=== PATIENT | female | born 1970 | race African-American/Black ===

== ENCOUNTER 2017-09-10 16:39 | Observation (INO) | payer SELFPAY ==
[~2017-09-10] VITALS: Ht 167.6 cm; Wt 102.0 kg
--- NOTE | 2017-09-10 16:54 | NUR ---
PT AMBULATED TO ER ROOM 13 WITH 2 DAUGHTERS. PT DISCOURAGED FROM PUTTING HER THICK JACKET BACK ON DUE TO FEVER.
--- NOTE | 2017-09-10 17:45 | NUR ---
TYLENOL PROVIDED FOR FEVER. PT WITH HIGH BP, BUT DOES NOT TAKE ANYTHING FOR IT, NOT DIAGNOSED.
[2017-09-10 18:08] LABS: HEMATOCRIT 43.7 % (37.0-47.0); HEMOGLOBIN 14.3 g/dl (12.0-16.0); IMMATURE GRANULOCYTES 0.3 % (0.0-1.0); MEAN CELL VOLUME 86.5 fL CALC (80.0-100.0); MEAN CORPUSCULAR HGB 28.3 pG CALC (26.0-32.0); MEAN CORPUSCULAR HGB CONC 32.7 g/L CALC (32.0-36.0); NEUT# 4.15 thou/uL (2.00-7.15); RED BLOOD COUNT 5.05 mill/uL (4.20-5.60); RED CELL DISTRI WIDTH 13.2 % (11.5-15.5)
[2017-09-10 18:29] LABS: ALBUMIN 4.7 g/dL (3.2-5.0); ALKALINE PHOSPHATASE 112 u/l (38-126); ANION GAP 16 (6-22 (CALC)); BILIRUBIN, TOTAL 0.5 mg/dL (0.0-1.4); BUN 13 mg/dL (7-17); BUN/CREATININE RATIO 13 (12-20 (CALC)); CALCIUM 9.6 mg/dL (8.4-10.2); CARBON DIOXIDE 27 mmol/l (22-30); CHLORIDE 101 mmol/l (95-108); GFR 59 ML/MIN (>=60 (CALC)); GFR FOR AFR.AMER. > 60 ML/MIN (>=60 (CALC)); GLUCOSE 104 mg/dL (65-105); POTASSIUM 4.6 mmol/l (3.5-5.1); SGOT/AST 17 u/l (14-36); SGPT/ALT 30 u/l (9-52); SODIUM 140 mmol/l (137-146); TOTAL PROTEIN 7.8 g/dL (6.3-8.2)
--- NOTE | 2017-09-10 19:00 | NUR ---
PT RETURNED FROM XRAY A/O X3 SAYS SHE FEELS A LITTLE BETTER PT IS RELIEVED TO BE TOLD HER BP IS COMING DOWN.W/P/D SKIN
[2017-09-10 19:04] LABS: INFLUENZA A NONE DETECTED (NONE DETECT); INFLUENZA B NONE DETECTED (NONE DETECT)
--- NOTE | 2017-09-10 20:17 | NUR ---
PHONE REPORT TO EVERT NIEVES ON MS 2
--- NOTE | 2017-09-10 20:21 | NUR ---
TO MS VIA STRETCHER AND MONITOR IN STABLE CONDITION
--- NOTE | 2017-09-10 20:23 | NUR ---
PT TRANSFERRED TO FLOOR IN STABLE CONDITION VIA STRETCHER ACCOMPANIED BY AG,RN AND FAMILY;PT AMBULATED WITH A STEADY GAIT TO BEDSIDE;VS AND WT OBTAINED BY GABBI PADRON;PT ORIENTED TO ROOM AND CALL LIGHT SYSTEM AND VERBALIZES UNDERSTANDING;PT A&O X3;ASSESSMENT COMPLETED;#20G TO RIGHT HAND FLUSHED,PATENT AND NS @ 100.0,PT TOLERATED WELL;TELE MONITOR IN PLACE;SKIN INTACT;RESPIRATIONS EVEN AND UNLABORED ON RA;SAFETY PRECAUTIONS REINFORCED;FRESH WATER PROVIDED;PT DENIES ANY PAIN OR DISCOMFORTS AND IS EDUCATED TO PAIN SCALE AND REPORTING;CALL LIGHT IN REACH;WILL CONTINUE TO MONITOR
[2017-09-10 20:25] VITALS: BP 164/89
[2017-09-10 23:57] VITALS: BP 142/91
[2017-09-11] VITALS (9 sets, daily range): BP systolic 143–184; BP diastolic 81–98
--- NOTE | 2017-09-11 00:25 | NUR ---
LAB AT BEDSIDE;IV FLUIDS INFUSING WELL TO RIGHT HAND;RESPIRATIONS EVEN AND UNLABORED ON RA;PT DENIES ANY OTHER NEEDS AT THIS TIME;CALL LIGHT IN REACH;WILL CONTINUE TO MONITOR
--- NOTE | 2017-09-11 00:40 | NUR ---
PT TEMP OF 101.6 AT THIS TIME;EMESIS BAGS PROVIDED FOR NAUSEA;AC LOWERED AND COOL CLOTH PROVIDED;PT REFUSES BLANKETS TO BE REMOVED STATING "IM FREEZING";PT EDUCATED ON THE NEED TO REMOVE HER BLANKETS TO LOWER HER TEMP BUT STILL REFUSES;PT MEDICATED WITH PRN TYLENOL 650MG;WILL CONTINUE TO MONITOR FOR EFFECT
[2017-09-11 05:54] LABS: HEMATOCRIT 41.9 % (37.0-47.0); HEMOGLOBIN 13.6 g/dl (12.0-16.0); MEAN CELL VOLUME 86.6 fL CALC (80.0-100.0); MEAN CORPUSCULAR HGB 28.1 pG CALC (26.0-32.0); MEAN CORPUSCULAR HGB CONC 32.5 g/L CALC (32.0-36.0); RED BLOOD COUNT 4.84 mill/uL (4.20-5.60); RED CELL DISTRI WIDTH 13.3 % (11.5-15.5)
[2017-09-11 06:00] LABS: URINE BILIRUBIN - DIPSTICK NEGATIVE (NEGATIVE); URINE BLOOD DIPSTICK TRACE-INTACT (NEGATIVE); URINE CLARITY CLEAR; URINE COLOR YELLOW; URINE GLUCOSE - DIPSTICK NEGATIVE (NEGATIVE); URINE KETONE NEGATIVE (NEGATIVE); URINE LEUK ESTERASE NEGATIVE (Negative); URINE NITRITE - DIPSTICK NEGATIVE (Negative); URINE PROTEIN - DIPSTICK NEGATIVE (NEG-TRACE); URINE UROBILINOGEN - DIPSTICK 0.2 E.U./dL (0.2)
--- NOTE | 2017-09-11 06:02 | NUR ---
PT COMPLAINS OF HEADACHE PAIN RATING 9/10 ON THE PAIN SCALE;NITRO PATCH REMOVED FROM LEFT UPPER CHEST AND PRN TYLENOL 650MG PROVIDED;IV FLUIDS INFUSING WELL TO RIGH HAND;TEMP CURRENTLY AT 99.1;PT DENIES ANY OTHER NEEDS AT THIS TIME;WILL CONTINUE TO MONITOR
[2017-09-11 06:15] LABS: CHOLESTEROL HDL RATIO 3.9 (<4.4 (CALC))
--- NOTE | 2017-09-11 07:00 | NUR ---
RECEIVED BEDSIDE REPORT FROM LEAH GAY. RESTING IN BED WITH EYES CLOSED, AWAKENS EASILY. RESPS EVEN AND UNLABORED ON ROOM AIR, TELE MONITOR IN PLACE. #22 LAC INFUSING WITHOUT DIFFICULTY, SITE APPEARS HEALTHY. VOICES NO NEEDS AT THIS TIME. PLAN OF CARE DISCUSSED. SAFETY PRECAUTIONS REINFORCED. BED IN LOWEST POSITION WITH WHEELS LOCKED. CALL LIGHT WITHIN REACH. ENCOURAGED PT TO CALL FOR ANY NEEDS.
--- NOTE | 2017-09-11 11:25 | NUR ---
MEDICATED WITH HYDRALAZINE 10 MG IVP FOR BP 184/97, TYLENOL PO FOR TYMPANIC TEMP 100.2. PO FLUIDS OFFERED. CALL LIGHT WITHIN REACH. WILL CONTINUE TO MONITOR.
--- NOTE | 2017-09-11 11:55 | NUR ---
DR FAN IN WITH PT, NEW ORDERS RECEIVED.
--- NOTE | 2017-09-11 14:45 | NUR ---
SPOKE TO PT. She mentioned experience sweating with current medications regimen. She complained about numbness in legs and dizziness. She does not experience serious side effects with her medications. She has no questions to doctors or pharmacists at this time.
--- NOTE | 2017-09-11 16:50 | NUR ---
MEDICATED WITH HYDRALAZINE 10MG IVP FOR BP 173/92 AND TYLENOL PO FOR TYMPANIC TEMP 100.2. CALL LIGHT WITHIN REACH.
--- NOTE | 2017-09-11 20:30 | NUR ---
PT APPEARS TO BE SLEEPING IN SUPINE POSITION;WOKE PT TO COMPLETE ASSESSMENT;#22G TO LAC FLUSHED AND PATENT;TELE MONITOR IN PLACE;PT VOICES NO CONERNS OF PAIN AT THIS TIME;PT EDUCATED TO KEEP AC LOWERED AND BLANKETS OFF TO REMAIN AFEBRILE,PT DISINTRESTED IN EDUCATION AT THIS TIME;RESPIRATIONS EVEN AND UNLABORED ON RA;SKIN INTACT;SAFETY PRECAUTIONS REINFORCED;PT EDUCATED TO CALL FOR ASSISTANCE IF NEEDED;CALL LIGHT IN REACH;WILL CONTINUE TO MONITOR
--- NOTE | 2017-09-12 00:25 | NUR ---
PT RESTING IN SUPINE POSITION;PT CURRENT BP 181/98;PT MEDICATED WITH PRN HYDRALAZINE 10MG BY EVERT CRAVEN;PT ALSO HAS A TEMP OF 101.8 AND IS MEDICATED WITH 650MG OF TYLENOL,BLANKETS REMOVED,COOL CLOTH PROVIDED;PT STATES "I ACTUALLY FEEL A LOT BETTER";WILL CONTINUE TO MONITOR FOR EFFECT
[2017-09-12 01:11] VITALS: BP 165/91
[2017-09-12 04:08] VITALS: BP 152/58; BP 157/101
--- NOTE | 2017-09-12 04:10 | NUR ---
PT APPEARS TO BE SLEEPING IN SUPINE POSITION BUT WAKES EASILY;VS OBTAINED;TEMP OF 97.8 AND BP OF 152/58;RESPIRATIONS EVEN AND UNLABORED ON RA;PT DENIES ANY NEEDS AT THIS TIME;CALL LIGHT IN REACH;WILL CONTINUE TO MONITOR
[2017-09-12 05:06] LABS: IMMATURE GRANULOCYTES 0.5 % (0.0-1.0); MEAN CELL VOLUME 85.8 fL CALC (80.0-100.0); MEAN CORPUSCULAR HGB 27.4 pG CALC (26.0-32.0); MEAN CORPUSCULAR HGB CONC 31.9 g/L CALC (32.0-36.0); NEUT# 4.86 thou/uL (2.00-7.15); RED BLOOD COUNT 5.48 mill/uL (4.20-5.60); RED CELL DISTRI WIDTH 13.2 % (11.5-15.5)
[2017-09-12 05:13] LABS: ANION GAP 18 (6-22 (CALC)); BUN 10 mg/dL (7-17); BUN/CREATININE RATIO 11 (12-20 (CALC)); CALCIUM 9.5 mg/dL (8.4-10.2); CARBON DIOXIDE 24 mmol/l (22-30); CHLORIDE 103 mmol/l (95-108); CREATININE 0.9 mg/dL (0.5-1.0); GFR > 60 ML/MIN (>=60 (CALC)); GFR FOR AFR.AMER. > 60 ML/MIN (>=60 (CALC)); GLUCOSE 143 mg/dL (65-105); MAGNESIUM 1.9 mg/dL (1.6-2.3); POTASSIUM 4.3 mmol/l (3.5-5.1); SODIUM 141 mmol/l (137-146)
--- NOTE | 2017-09-12 07:00 | NUR ---
RECEIVED BEDSIDE REPORT FROM LEAH GAY. RESTING IN BED WITH EYES CLOSED, AWAKENS EASILY. RESPS EVEN AND UNLABORED ON ROOM AIR, TELE MONITOR IN PLACE. VOICES NO NEEDS AT THIS TIME. PLAN OF CARE DISCUSSED. SAFETY PRECAUTONS REINFORCED. BED IN LOWEST POSITION WITH WHEELS LOCKED. CALL LIGHT WITHIN REACH. ENCOURAGED PT TO CALL FOR ANY NEEDS.
[2017-09-12 07:21] VITALS: BP 161/92
[2017-09-12 08:10] VITALS: BP 161/92
--- NOTE | 2017-09-12 12:00 | NUR ---
SITTING IN BED EATING LUNCH. RESPS EVEN AND UNLABORED ON ROOM AIR, TELE MONITOR IN PLACE. VOICES NO NEEDS AT THIS TIME. CALL LIGHT WITHIN REACH. WILL CONTINUE TO MONITOR.
[2017-09-12] MEDS ORDERED: HYDROCHLOROT25 MG PO (13:25)
[2017-09-12] MEDS ORDERED: ZITHROMAX500 MG PO (13:25)
[2017-09-12] MEDS ORDERED: ASPIRIN CHEWABL81 MG PO (13:25)
[2017-09-12] MEDS ORDERED: LIPITOR20 MG PO (13:25)
[2017-09-12] MEDS ORDERED: LOPRESSOR25 MG PO (13:25)
[2017-09-12] MEDS ORDERED: AMLODIPINE BESYL5 MG PO (13:25)
[2017-09-12] MEDS ORDERED: PREDNISONE10 MG PO (13:25)
--- NOTE | 2017-09-12 14:25 | NUR ---
Discharge instructions given. Patient verbalizes understanding of same. Discharged in stable condition via Wheelchair to Home with family. All belongings sent with pt.
== END 2017-09-12 14:25 | disposition home or self-care (01) | DRG 305 ==
LOC: ED 16:39 → ED-I 17:06 → ED 17:06 → ED-I 19:00 → ED 19:29 → MS2 19:30
PROVIDERS: Emergency Medicine; Nurse Practitioner Family; ADMIT Internal Medicine; ATTEND Internal Medicine
DX: I16.0 Hypertensive urgency (principal); J20.9 Acute bronchitis, unspecified; I10 Essential (primary) hypertension; E78.5 Hyperlipidemia, unspecified; F17.290 Nicotine dependence, other tobacco product, uncomplicated; R94.31 Abnormal electrocardiogram [ECG] [EKG]
CPT/HCPCS: G0378

== ENCOUNTER 2019-06-21 11:42 | Observation (INO) | payer SELFPAY ==
[~2019-06-21] VITALS: Ht 167.6 cm; Wt 103.4 kg
[~2019-06-21 11:42] MED LIST: AMLODIPINE BESYL5 MG PO; ASPIRIN CHEWABL81 MG PO; HYDROCHLOROT25 MG PO; LIPITOR20 MG PO; LOPRESSOR25 MG PO; PREDNISONE10 MG PO; ZITHROMAX500 MG PO
--- NOTE | 2019-06-21 11:52 | NUR ---
PATIENT TO ROOM VIA WHEELCHAIR AND PHYSICIAN AT BEDSIDE FOR EVAL
[2019-06-21 12:25] LABS: HEMATOCRIT 45.5 % (37.0-47.0); HEMOGLOBIN 14.6 g/dl (12.0-16.0); IMMATURE GRANULOCYTES 0.2 % (0.0-5.0); MEAN CORPUSCULAR HGB 27.3 pG CALC (26.0-32.0); MEAN CORPUSCULAR HGB CONC 32.1 g/L CALC (32.0-36.0); NEUT# 2.28 thou/uL (2.00-7.15); RED BLOOD COUNT 5.35 mill/uL (4.20-5.60); RED CELL DISTRI WIDTH 13.3 % (11.5-15.5)
[2019-06-21] MEDS ORDERED: HYDROCHLOROT25 MG PO (12:25)
[2019-06-21] MEDS ORDERED: METOPROL TAR25 MG PO (12:27)
--- NOTE | 2019-06-21 12:30 | NUR ---
PT REPORTS DECREASE IN CHEST PRESSURE. BP STABLE. DENIES N/V
[2019-06-21 12:48] LABS: ANION GAP 15 (6-22 (CALC)); BUN 17 mg/dL (7-17); BUN/CREATININE RATIO 20 (12-20 (CALC)); CARBON DIOXIDE 25 mmol/l (22-30); CHLORIDE 103 mmol/l (95-108); CREATININE 0.8 mg/dL (0.5-1.0); GFR > 60 ML/MIN (>=60 (CALC)); GFR FOR AFR.AMER. > 60 ML/MIN (>=60 (CALC)); POTASSIUM 3.7 mmol/l (3.5-5.1); SODIUM 139 mmol/l (137-146)
--- NOTE | 2019-06-21 13:42 | NUR ---
PT HI FOWLERS IN BED. MAEW SKIN WARM AND DRY. DENIES PAIN AWARE OF PENDING ADM
--- NOTE | 2019-06-21 14:01 | NUR ---
REPORT CALLED TO TAYO, NURSE, ON [facility]. ADVISED OF EVENTS. TELEMETRY, IV, PT STABLE CONDIION. PT TO [facility] ROOM 273 VIA WC. IV SITE HEALTHY.
--- NOTE | 2019-06-21 14:17 | NUR ---
PT TRANSPORTED TO MS2 VIA WC ACCOMPIANED BY ER NURSE. VS DONE. PT A/O X3. SPEECH IS CLEAR. PERRLA. RESP EVEN AND UNLABORED. LT LUNG CLEAR, RT LUNG DIMINISHED. STRONG RADIAL AND PEDAL PULSES. #20 LAC SL. FLUSHED AND PATENT. SITE APPEARS HEALTHY. GOOD BOWEL SOUNDS. SKIN INTACT. PT DENIES ANY PAIN OR NEEDS. POC DISCUSSED. SAFETY PRECAUTIONS IN PLACE. CALL LIGHT IN REACH. WILL CONTINUE TO MONITOR.
[2019-06-21 14:28] VITALS: BP 130/77
--- NOTE | 2019-06-21 14:56 | NUR ---
MD MADE OF PT BRADYCARDIA; 38. NEW ORDERSD AND MONITOR PT PULSE. IF PT BECOMES MORE BRADYCARDIC TO MOVE PT TO ICU. WILL CONTINUE TO MONITOR.
--- NOTE | 2019-06-21 16:03 | NUR ---
ER CALLED TO CHECK PT PULSES; SB 51. WILL CONTINUE TO MONITOR.
--- NOTE | 2019-06-21 16:40 | NUR ---
PT WATCHING TELEVISION. NO C/O PAIN OR NEEDS. CALL LIGHT IN REACH. WILL CONTINUE TO MONITOR.
--- NOTE | 2019-06-21 19:00 | NUR ---
REPORT RECEIVED FROM VICTOR HUGO CR. PT RESTING IN BED, FAMILY AT BEDSIDE, NO S/S OF DISTRESS AT THIS TIME. CALL LUZ WITHIN REACH. WILL CONTINUE TO MONITOR.
[2019-06-21 19:25] VITALS: BP 116/71
--- NOTE | 2019-06-21 19:45 | NUR ---
PT RESTING IN BED, ALERT AND ORIENTED. RESPIRATIONS EVEN AND UNLABORED ON RA. LUNGS SOUND CLEAR/DIMINISHED. PEDAL PULSES STRONG. PT DENIES ANY PAIN OR DISCOMFORT AT THIS TIME. #20 LAC NS @ 100 ML/HR, FREE FROM INFILTRATES. TELE IN PLACE. CALL LUZ WITHIN REACH. WILL CONTINUE TO MONITOR.
[2019-06-21 23:58] VITALS: BP 140/69
--- NOTE | 2019-06-22 00:41 | NUR ---
PT RESTING IN BED. PT PROVIDED WITH A SNACK PER REQUEST. PT DENIES AND PAIN OR DISCOMFORT AT THIS TIME. TELE IN PLACE. WILL CONTINUE TO MONITOR.
--- NOTE | 2019-06-22 04:13 | NUR ---
PT RESTING IN BED. NO S/S OF DISTRESS AT THIS TIME. TELE IN PLACE. CALL LUZ WITHIN REACH. WILL CONTINUE TO MONITOR.
[2019-06-22 04:39] VITALS: BP 126/68
[2019-06-22 06:51] LABS: CHOLESTEROL HDL RATIO 5.2 (<4.4 (CALC)); MAGNESIUM 1.7 mg/dL (1.6-2.3)
[2019-06-22 08:00] VITALS: BP 140/57
--- NOTE | 2019-06-22 08:00 | NUR ---
Received pt in low lovett position, eyes closed. Awakens easily to verbal stimuli. Assesement complete. Pt denies any chest pain or shortness of breath. See shift review for complete assessment. Plan of care discussed and am scheduled meds given.
[2019-06-22] MEDS ORDERED: ADLT ASA LOW81 MG PO (10:24)
[2019-06-22] MEDS ORDERED: SIMVASTATIN20 MG PO (10:26)
--- NOTE | 2019-06-22 10:31 | NUR ---
Dr Fletcher in to see pt. Discharge discussed.
--- NOTE | 2019-06-22 12:30 | NUR ---
PT REQUESTING B/P TO BE TAKEN. B/P WNL, HR 58.
[2019-06-22 12:32] VITALS: BP 121/68
--- NOTE | 2019-06-22 13:15 | NUR ---
DISCHARGE INSTUCTIONS GIVEN. THOROUGHLY DISCUSSED MEDIATIONS. DISCUSSED NOT TAKEN METOPROLOL IF HR LESS THAN 60. DISCUSSED NEW ORDER FOR SIMVASTATIN AND POSSIBLE SIDE EFFECTS. DISCUSSED SLOW POSITION CHANGES AND FOLLOW UP WITH PRIMARY CARE DISCUSSED.
== END 2019-06-22 13:00 | disposition home or self-care (01) | DRG 313 ==
LOC: ED 11:42 → ED-I 12:23 → ED 12:23 → ED-I 13:00 → ED 13:24 → MS2 13:25
PROVIDERS: Family Medicine; ADMIT Internal Medicine; ATTEND Internal Medicine
DX: R07.2 Precordial pain (principal); I16.0 Hypertensive urgency; I10 Essential (primary) hypertension; E78.5 Hyperlipidemia, unspecified; E66.3 Overweight; Z87.891 Personal history of nicotine dependence
CPT/HCPCS: G0378

== ENCOUNTER 2022-05-20 10:30 | Observation (INO) | payer SELFPAY ==
[~2022-05-20] VITALS: Ht 167.6 cm; Wt 105.0 kg
[2022-05-20] VITALS (9 sets, daily range): BP systolic 160–186; BP diastolic 84–106
[~2022-05-20 10:30] MED LIST changes: +ADLT ASA LOW81 MG PO; +METOPROL TAR25 MG PO; +SIMVASTATIN20 MG PO
--- NOTE | 2022-05-20 11:44 | NUR ---
PT AMBULATES TO TRIAGE FOR EVAL OF ELEVATED BP AND LOW HR WITH CO LIGHTHEADEDNESS.
[2022-05-20 12:31] LABS: HEMATOCRIT 44.1 % (37.0-47.0); HEMOGLOBIN 13.8 g/dl (12.0-16.0); IMMATURE GRANULOCYTES 0.2 % (0.0-5.0); MEAN CELL VOLUME 88.6 fL CALC (80.0-100.0); MEAN CORPUSCULAR HGB 27.7 pG CALC (26.0-32.0); MEAN CORPUSCULAR HGB CONC 31.3 g/dL CAL (32.0-36.0); NEUT# 2.56 thou/uL (2.00-7.15); RED BLOOD COUNT 4.98 mill/uL (4.20-5.60); RED CELL DISTRI WIDTH 13.2 % (11.5-15.5)
[2022-05-20 12:47] LABS: ALBUMIN 4.2 g/dL (3.2-5.0); ALKALINE PHOSPHATASE 122 u/l (38-126); BILIRUBIN, TOTAL 0.3 mg/dL (0.0-1.4); BUN 16 mg/dL (7-17); BUN/CREATININE RATIO 16 (12-20 (CALC)); CHLORIDE 104 mmol/l (95-108); GFR FOR AFR.AMER. > 60 ML/MIN (>=60 (CALC)); GFR OTHER RACES 58 ML/MIN (>=60 (CALC)); SODIUM 138 mmol/l (137-146); TOTAL PROTEIN 7.3 g/dL (6.3-8.2)
[2022-05-20 12:48] LABS: ANION GAP 7 (6-22 (CALC)); CARBON DIOXIDE 31 mmol/l (22-30); SGOT/AST 30 u/l (14-36)
[2022-05-20] MEDS ORDERED: AMLODIPINE BESY10 MG PO (13:41)
--- NOTE | 2022-05-20 13:47 | NUR ---
PT D/C HOME. PT VSS. ATTENDING MD D/C PT FROM ER.
== END 2022-05-20 13:47 | disposition home or self-care (01) | DRG 918 ==
LOC: ED 10:30 → ED-I 13:00 → ED 13:36 → ED-I 13:36
PROVIDERS: Family Medicine; ADMIT Hospitalist; ATTEND Hospitalist
DX: T44.7X1A Poisoning by beta-adrenoreceptor antagonists, accidental (unintentional), initial encounter (principal); R00.1 Bradycardia, unspecified; I10 Essential (primary) hypertension; E66.9 Obesity, unspecified

== ENCOUNTER 2023-04-05 10:34 | Emergency (ER) | payer OTHER ==
[~2023-04-05] VITALS: Ht 167.6 cm; Wt 100.0 kg
[~2023-04-05 10:34] MED LIST changes: +AMLODIPINE BESY10 MG PO
[2023-04-05 10:41] VITALS: BP 169/94
[2023-04-05] MEDS ORDERED: [UNRECOGNIZED DRUG - OTHER] PO (10:48)
[2023-04-05] MEDS ORDERED: ASPIRINCHW 81MG PO (10:48)
[2023-04-05 10:56] LABS: URINE BILIRUBIN - DIPSTICK NEGATIVE (NEGATIVE); URINE BLOOD DIPSTICK TRACE-LYSED (NEGATIVE); URINE COLOR YELLOW; URINE GLUCOSE - DIPSTICK NEGATIVE (NEGATIVE); URINE KETONE NEGATIVE (NEGATIVE); URINE LEUK ESTERASE NEGATIVE (NEGATIVE); URINE PROTEIN - DIPSTICK NEGATIVE (NEG-TRACE); URINE UROBILINOGEN - DIPSTICK 0.2 E.U./dL (0.2)
[2023-04-05 10:58] LABS: BASO% 1.2 % (0-3); EOS% 2.2 % (0-8); HEMATOCRIT 43.3 % (37.0-47.0); HEMOGLOBIN 13.7 g/dl (12.0-16.0); IMMATURE GRANULOCYTES 0.2 % (0.0-5.0); LYMPH% 42.7 % (15-41); MEAN CELL VOLUME 85.9 fL CALC (80.0-100.0); MEAN CORPUSCULAR HGB 27.2 pG CALC (26.0-32.0); MEAN CORPUSCULAR HGB CONC 31.6 g/dL CAL (32.0-36.0); MONO% 7.9 % (2-13); NEUT# 2.97 thou/uL (2.00-7.15); NEUT% 45.8 % (42-76); RED BLOOD COUNT 5.04 mill/uL (4.20-5.60); RED CELL DISTRI WIDTH 13.5 % (11.5-15.5)
[2023-04-05 10:58] LABS: URINE NITRITE - DIPSTICK NEGATIVE (Negative)
[2023-04-05 11:02] VITALS: BP 147/85
[2023-04-05 11:13] LABS: ALBUMIN 4.7 g/dL (3.2-5.0); ALKALINE PHOSPHATASE 155 u/l (38-126); ANION GAP 14 (6-22 (CALC)); BILIRUBIN, TOTAL 0.4 mg/dL (0.02-1.3); BUN 21 mg/dL (7-17); BUN/CREATININE RATIO 26 (12-20 (CALC)); CARBON DIOXIDE 25 mmol/l (22-30); CHLORIDE 102 mmol/l (95-108); CREATININE 0.8 mg/dL (0.5-1.0); GFR FOR AFR.AMER. > 60 ML/MIN (>=60 (CALC)); GFR OTHER RACES > 60 ML/MIN (>=60 (CALC)); LIPASE 176 u/l (23-300); POTASSIUM 4.3 mmol/l (3.5-5.1); SGOT/AST 25 u/l (14-36); SODIUM 137 mmol/l (137-146); TOTAL PROTEIN 7.8 g/dL (6.3-8.2)
[2023-04-05] MEDS ORDERED: OMNI-PAC300 MG PO (12:47)
[2023-04-05 12:54] VITALS: BP 147/85
== END 2023-04-05 13:09 | disposition home or self-care (01) | DRG 761 ==
LOC: ED 10:34
PROVIDERS: Family Medicine
DX: D25.9 Leiomyoma of uterus, unspecified (principal); R31.9 Hematuria, unspecified; I10 Essential (primary) hypertension; E66.9 Obesity, unspecified

== ENCOUNTER 2024-05-14 11:41 | Emergency (ER) | payer SELFPAY ==
[~2024-05-14] VITALS: Ht 167.6 cm; Wt 104.0 kg
[2024-05-14] VITALS (13 sets, daily range): BP systolic 130–199; BP diastolic 79–112
[~2024-05-14 11:41] MED LIST changes: +ASPIRINCHW 81MG PO; +OMNI-PAC300 MG PO; +[UNRECOGNIZED DRUG - OTHER] PO
[2024-05-14] MEDS ORDERED: traMADol HCL 50 MG/TAB PO ONE (12:05)
[2024-05-14] MEDS ORDERED: LIDOcaine HCl 1% (Local Anesth.) 20 ML VIAL STI ONE (13:35)
[2024-05-14] MEDS ORDERED: TRIAMCINOLONE ACETONIDE 200 MG/5 ML VIAL IA ONE (13:35)
[2024-05-14] MEDS ORDERED: PREDNISONE20 MG PO (14:07)
[2024-05-14] MEDS ORDERED: TRAMADOL HYDROC50 M1 PO (14:07)
== END 2024-05-14 14:19 | disposition home or self-care (01) | DRG 563 ==
LOC: ED 11:41
DX: S86.911A Strain of unspecified muscle(s) and tendon(s) at lower leg level, right leg, initial encounter (principal); I10 Essential (primary) hypertension; X58.XXXA Exposure to other specified factors, initial encounter; T46.5X6A Underdosing of other antihypertensive drugs, initial encounter; Z91.128 Patient's intentional underdosing of medication regimen for other reason

== ENCOUNTER 2024-05-16 06:11 | Emergency (ER) | payer SELFPAY ==
[~2024-05-16] VITALS: Ht 172.7 cm; Wt 104.0 kg
[~2024-05-16 06:11] MED LIST changes: +PREDNISONE20 MG PO; +TRAMADOL HYDROC50 M1 PO
[2024-05-16] MEDS ORDERED: KETOROLAC TROMETHAMINE 30 MG/ML SDV IM ONE (07:15)
[2024-05-16 07:16] VITALS: BP 165/98
[2024-05-16] MEDS ORDERED: PREDNISONE50 MG PO (07:19)
[2024-05-16] MEDS ORDERED: NAPROXEN500 MG PO (07:19)
[2024-05-16 07:23] VITALS: BP 165/98
== END 2024-05-16 07:29 | disposition home or self-care (01) | DRG 563 ==
LOC: ED 06:11
DX: S86.911A Strain of unspecified muscle(s) and tendon(s) at lower leg level, right leg, initial encounter (principal); M17.11 Unilateral primary osteoarthritis, right knee; I10 Essential (primary) hypertension; X58.XXXA Exposure to other specified factors, initial encounter